=== PATIENT | male | born 1975 | race Caucasian/White ===

== ENCOUNTER 2017-07-29 10:05 | Day surgery (SDC) | payer BC ==
[~2017-07-29] VITALS: Ht 177.8 cm; Wt 70.7 kg
[~2017-07-29 10:05] MED LIST: ASCORBIC ACID500 M3 PO; PROTONIX40 MG PO; RANITIDINE HCL300 MG PO
[2017-07-29 10:36] VITALS: BP 137/80
[2017-07-29] MEDS ORDERED: NORCO 5/3251 TABLET PO (14:17)
[2017-07-29 15:50] VITALS: BP 129/78
[2017-07-29 16:59] VITALS: BP 130/76
== END 2017-07-29 17:00 | disposition home or self-care (01) ==
LOC: SDC 10:05
PROC: 0YU50JZ Supplement Right Inguinal Region with Synthetic Substitute, Open Approach (ICD-10-PCS; principal; 2017-07-29)
DX: K40.90 Unilateral inguinal hernia, without obstruction or gangrene, not specified as recurrent (principal); D17.6 Benign lipomatous neoplasm of spermatic cord; Z87.891 Personal history of nicotine dependence
CPT/HCPCS: C1781; J0330; J0690; J1100; J1170; J2250; J2405; J3010